=== PATIENT | male | born 1965 | race Caucasian/White ===

== ENCOUNTER → 2019-03-03 | Outpatient (CLI) | payer BC ==
--- NOTE | 2019-03-03 21:32 | CONS ---
CONSULTATION DATE OF SERVICE: 03/03/2019 53-year-old gentleman has been evaluated in the sleep center for possible obstructive sleep apnea-hypopnea syndrome HISTORY OF PRESENT ILLNESS/SLEEP WAKE EVALUATION: SLEEP SCHEDULE: Patient usual sleep schedule on working days from 4:00 pm until 12:30 am, on weekends from 6 to 7 p.m. until 4:30 am. Patient starts his job at 1:30 am and that is why his sleep schedule like I described above. FALLING ASLEEP: No problem with falling asleep, although he has TV in bedroom. He usually sleeps on the side position by himself. He knows that he snores. He wakes up from sleep up to 2 times with nocturia. No history of any unusual movements during the night. No history of hypnagogic hallucinations or sleep paralysis or cataplexy. [place] Sleepiness Scale is 4. Usually he does not take any naps. PAST MEDICAL HISTORY: Positive for hypertension. PAST SURGICAL HISTORY: Positive for surgery on the left elbow after the fracture. MEDICATIONS: Lisinopril. SOCIAL HISTORY: Positive for smoking in the past; quit more than 30 years ago. Alcohol consumption occasional. FAMILY HISTORY: Cancer. REVIEW OF SYSTEMS: Practically negative up to 2 times awakenings from sleep with nocturia. PHYSICAL EXAMINATION: During physical exam, gentleman in no distress. BP 140/79, HR 80, RR 16, height 5 feet 10-1/2 inches, weight 256 pounds. Body mass index 36.2, temperature 98.3, oxygen saturation at room air 97%. HEENT: Oropharynx moderately low position of soft palate, Mallampati 2-3. Nose: Restriction of nasal breathing bilaterally. NECK: Neck is wide 18-1/2 inches in circumference. Neck Supple, no JVD. Thyroid is not palpable. LUNGS Clear to percussion and to auscultation. Good air exchange. No wheezing or rhonchi. HEART S1, S2 regular. No murmurs, gallops, or rubs. ABDOMEN: Slightly obese. Soft and nontender. Bowel sounds are present. No organomegaly appreciated. EXTREMITIES No clubbing or cyanosis. E LEARNING DEVELOPER Awake, alert, and oriented X3. Cranial nerves 2 to 7 intact. There is no fasciculation or atrophy. noted. No focal deficits observed. IMPRESSION: 1. Snoring, awakenings from sleep with nocturia, moderately low soft palate, wide neck, obstructive sleep apnea-hypopnea syndrome. 2. Obesity BMI 36.2. 3. Hypertension. 4. Status post left elbow trauma with following surgical treatment. 5. Restriction of nasal breathing at present. 6. 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 PLANS: 1. Home sleep apnea test for evaluation of patient breathing during the sleep. 2. Following plan after reviewing the results of the sleep study. 3. Losing weight. 4. Sleep hygiene with regular time in bed for 7.5 to 8 hours. 5. No driving if feeling sleepiness. Patient is aware about civil and criminal liability for unsafe driving. Thank you very much for referring this patient for consultation. Sincerely, London Zhang MD, PhD, FAASM Diplomat of [employer] of [facility] [place] [facility]ODL / LATESHAN: [id number] /
== END | disposition home or self-care (01) ==
LOC: SLEEP 15:55
PROVIDERS: ATTEND Internal Medicine
DX: G47.33 Obstructive sleep apnea (adult) (pediatric) (principal); J98.8 Other specified respiratory disorders; I10 Essential (primary) hypertension; E66.9 Obesity, unspecified; Z68.36 Body mass index [BMI] 36.0-36.9, adult; Z87.891 Personal history of nicotine dependence; Z87.828 Personal history of other (healed) physical injury and trauma; Z98.890 Other specified postprocedural states
CPT/HCPCS: 99211

== ENCOUNTER → 2019-04-07 | Outpatient (CLI) | payer BC ==
--- NOTE | 2019-04-07 16:45 | PN ---
PROGRESS NOTE DATE OF SERVICE: 04/07/2019 This patient is a 54-year-old gentleman who has been followed in the sleep center for treatment of obstructive sleep apnea-hypopnea syndrome. The patient had a home sleep study which showed obstructive sleep apnea with apnea- hypopnea index 7.9 and oxygen desaturation to 81%. Subsequently the patient was started on treatment with AutoPAP, and today is his first visit after he received his CPAP equipment. The patient is able to use CPAP equipment without significant problems every night. No problems with the mask except a little bit of itching under the nose. Otherwise, he feels better while he is using CPAP. He sleeps better and he feels better during the day. [place] Sleepiness Scale is 4 today. I checked his CPAP unit. Range of pressure is 5-15, average pressure 9.3. The patient used it 8/9 nights with average usage 6.5 hours. Every night it was more than 4 hours. Leak is 18 L/minute. Apnea-hypopnea index 1.0, which is absolutely normal. MEDICATIONS: 1. Lisinopril. 2. Thyroid supplement. PHYSICAL EXAMINATION: GENERAL: A pleasant patient in no distress. VITAL SIGNS: BP 143/96 on the right arm, 141/94 on the left arm. HR 76, RR 18, weight 256 pounds, temperature 98.1. Oxygen saturation at room air 95%. HEENT: PERRLA, EOMI. Evaluation of oropharynx showed tongue protrudes midline. Extremely low position of soft palate. Mallampati III. NECK: Supple. No JVD. Thyroid is not palpable. LUNGS: Clear to percussion and to auscultation. Good air exchange. No wheezing or rhonchi. HEART: S1, S2 regular. No murmurs, gallops or rubs. ABDOMEN: Obese. EXTREMITIES: No clubbing or cyanosis. SHOW WORKER: Awake, alert, and oriented X3. Cranial nerves 2 to 7 intact. There is no fasciculation or atrophy. noted. No focal deficits observed. IMPRESSION: 1. Obstructive sleep apnea-hypopnea syndrome in mild range. Patient has demonstrated great compliance with treatment, benefitting from treatment. Normal respiration on CPAP. No excessive daytime sleepiness. 2. Obesity. 3. History of hypothyroidism. 4. Hypertension. 5. Status post left elbow trauma with surgical treatment. 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 PLAN: 1. Patient will continue to use CPAP equipment every night for the whole night. I will see him in several weeks to check his compliance after one month of usage of the machine. 2. Patient may continue to drive a truck. Obstructive sleep apnea is in mild range and he demonstrated good compliance with treatment. Precautions related to driving. No driving if feeling any sleepiness. 3. Losing weight. 4. Sleep hygiene with regular time in bed for at least 7-1/2 hours. Thank you very much for allowing me to participate in the management of your patient. Sincerely, London Zhang MD, PhD, FAASM Diplomat of [employer] Business Services Coordinator of [facility] [place] [facility] / LATESHAN: [id number] /
== END | disposition home or self-care (01) ==
LOC: SLEEP 14:34
PROVIDERS: ATTEND Internal Medicine
DX: G47.33 Obstructive sleep apnea (adult) (pediatric) (principal); E66.9 Obesity, unspecified; E03.9 Hypothyroidism, unspecified; I10 Essential (primary) hypertension; Z87.828 Personal history of other (healed) physical injury and trauma; Z99.89 Dependence on other enabling machines and devices; Z98.890 Other specified postprocedural states; Z79.899 Other long term (current) drug therapy

== ENCOUNTER → 2019-06-02 | Outpatient (CLI) | payer BC ==
--- NOTE | 2019-06-02 18:16 | PN ---
PROGRESS NOTE DATE OF SERVICE: 06/02/2019 This patient is a 54-year-old gentleman who has been followed in Sleep Center for treatment of obstructive sleep apnea-hypopnea syndrome. The patient received his CPAP unit and started to use it. Today is his first visit after he started to use his CPAP equipment. Patient feels better with the machine. He feels more refreshed in the morning after he wakes up. CPAP pressure in the machine is in the range from 5 to 15 with average pressure 8.6 cm of water. For the last 65 days, the patient used it 60 nights, and 48 nights for more than 4 hours with average usage 4.9 hours, which is more than 70% compliance reading. Leak is 19 L/minute, which is borderline. Apnea-hypopnea index is only 0.9, which is absolutely normal. MEDICATIONS: 1. Lisinopril. 2. Thyroid supplement. PHYSICAL EXAMINATION: GENERAL: A pleasant patient in no distress. VITAL SIGNS: BP 132/68, HR 83, RR 18, weight 264, temperature 98.2, oxygen saturation at room air 97%. HEENT: PERRLA, EOMI. Evaluation of oropharynx showed tongue protrudes midline. Extremely low position of soft palate. Mallampati III to IV. NECK: Supple. No JVD. Thyroid is not palpable. LUNGS: Clear to percussion and to auscultation. Good air exchange. No wheezing or rhonchi. HEART: S1, S2 regular. No murmurs, gallops or rubs. ABDOMEN: Obese. EXTREMITIES: No clubbing or cyanosis. DRILL PUNCH OPERATOR: Awake, alert, and oriented X3. Cranial nerves 2 to 7 intact. There is no fasciculation or atrophy. noted. No focal deficits observed. IMPRESSION: 1. Mild obstructive sleep apnea-hypopnea syndrome. Patient demonstrated good compliance with treatment, benefitting from treatment. Normal respiration on CPAP. No excessive daytime sleepiness. Normal [place] Sleepiness Scale at 2 today. 2. Obesity. 3. History of hypothyroidism. 4. Hypertension. 5. Status post left elbow trauma with surgical treatment. 6. 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 PLAN: 1. Patient will continue to use CPAP equipment every night for the whole night. 2. Losing weight. 3. Sleep hygiene with regular time in bed for at least 7-1/2 to 8 hours. 4. Precautions related to driving. No driving if feeling any sleepiness. Patient is aware of civil and criminal liability for unsafe driving. 5. I will maintain all necessary prescriptions for CPAP supplies, including mask, tube, filters. Thank you very much for allowing me to participate in the management of your patient. Sincerely, London Zhang MD, PhD, FAASM Diplomat of [employer] [facility] [place] MMODL / LATESHAN: [id number] /
== END | disposition home or self-care (01) ==

== ENCOUNTER 2020-01-25 11:40 | Emergency (ER) | payer BC ==
[2020-01-25 11:47] VITALS: RESP 18; TEMP 98
[2020-01-25] MEDS ORDERED: RABIES VACCINE (PCEC) 2.5 UNIT KIT IM ONE (11:53)
[2020-01-25] MEDS ORDERED: DIPH,PERTUS(ACELL)TETVAC-LF 0.5 ML VIAL IM ONE (11:53)
[2020-01-25] MEDS ORDERED: RABIES IMMUNE GLOB 300 UNIT/ML 1 ML VIAL IM ONE (11:53)
[2020-01-25] MEDS ORDERED: LIDOCAINE 1% INJ 10MG/ML (20 ML MDV) SQ ONE (11:54)
[2020-01-25] MEDS ORDERED: RABIES IMMUNE GLOB 300 UNIT/ML 5 ML VIAL IM ONE (12:00)
--- NOTE | 2020-01-25 12:19 | XR ---
EXAMINATION TYPE: XR forearm RT DATE OF EXAM: 01/25/2020 CLINICAL HISTORY: pain TECHNIQUE: Frontal and lateral images of the right forearm are obtained. COMPARISON: None. FINDINGS: There is no acute fracture/dislocation evident. The joint spaces appear within normal limi ts. There is soft tissue laceration noted with small radiopaque density seen which could reflect a ti ny 2 mm foreign body lateral soft tissues proximal one third. IMPRESSION: There is no acute fracture or dislocation. ICD 10 NO FRACTURE, INITIAL EVALUATION
--- NOTE | 2020-01-25 12:45 | ED ---
Animal Bite HPI - General Chief Complaint: Animal Bite Stated Complaint: dog bite rt arm Time Seen by Provider: 01/25/20 11:50 Source: patient, RN notes reviewed Mode of arrival: ambulatory Limitations: no limitations - History of Present Illness Initial Comments: 54-year-old male presents emergency from chief complaint of a dog one to his right forearm. Patient states that he is walking his dog and states all her dog came to attack his dog. He states he protected his dog putting his arm out. He states his bit by a stray dog. Patient cannot over his last tetanus. Patient denies any numbness or tingling or weakness to his hands, forearm. Patient states the bleeding is very mild he states that he's been washing the wound out at home with hydrogen peroxide and water. - Related Data Previous Rx's Medication Instructions Recorded Amoxicillin/Potassium Clav 1 tab PO Q12HR #20 tab 01/25/20 [Augmentin 875-125 Tablet] Allergies Allergy/AdvReac Type Severity Reaction Status Date / Time No Known Allergies Allergy Verified 01/25/20 11:47 Review of Systems ROS Statement: Those systems with pertinent positive or pertinent negative responses have been documented in the HPI. ROS Other: All systems not noted in ROS Statement are negative. Past Medical History Past Medical History: No Reported History Additional Past Surgical History / Comment(s): left elbow surgery Smoking Status: Never smoker Past Alcohol Use History: Occasional Past Drug Use History: None Reported General Exam Limitations: no limitations General appearance: alert, in no apparent distress Head exam: Present: atraumatic, normocephalic, normal inspection Eye exam: Present: normal appearance, PERRL, EOMI. Absent: scleral icterus, conjunctival injection, periorbital swelling Neck exam: Present: normal inspection. Absent: tenderness, meningismus, lymphadenopathy Respiratory exam: Present: normal lung sounds bilaterally. Absent: respiratory distress, wheezes, rales, rhonchi, stridor Cardiovascular Exam: Present: regular rate, normal rhythm, normal heart sounds. Absent: systolic murmur, diastolic murmur, rubs, gallop, clicks Extremities exam: Present: other (Right forearm there are multiple puncture wounds noted, 3 separate lacerations #1 - 1 cm, mild venous ooze, #2 - 3 cm laceration on the forearm, #3 V-shaped 3 cm laceration; no noted foreign body or tendon injury, patient has full strength, neurovascular intact) Course Vital Signs 01/25/20 01/25/20 11:42 12:54 Temperature 98.0 F Pulse Rate 94 88 Respiratory 18 18 Rate Blood Pressure 144/91 140/86 O2 Sat by Pulse 97 98 Oximetry Procedures - Laceration Laceration #1 Consent Obtained: verbal consent Indication: laceration Site: upper extremity (Right forearm) Size (cm): 1 Description: linear Depth: simple, single layer Anesthetic Used: lidocaine 1%, without epi Anesthesia Technique: local infiltration Amount (mls): 2 Pre-repair: wound explored, irrigated extensively, deep structures intact Type of Sutures: nylon Size of Sutures: 4-0 Number of Sutures: 1 Technique: simple, interrupted Patient Tolerated Procedure: well, no complications Laceration #2 Consent Obtained: verbal consent Indication: laceration Site: upper extremity (Right forearm) Size (cm): 3 Description: irregular Depth: simple, single layer Anesthetic Used: lidocaine 1%, without epi Anesthesia Technique: local infiltration Amount (mls): 6 Pre-repair: wound explored, irrigated extensively, deep structures intact Type of Sutures: nylon Size of Sutures: 4-0 Number of Sutures: 4 Technique: simple, interrupted Patient Tolerated Procedure: well, no complications Laceration #3 Consent Obtained: verbal consent Indication: laceration Site: upper extremity (Right forearm) Size (cm): 3 Description: irregular Depth: simple, single layer Anesthetic Used: lidocaine 1%, without epi Anesthesia Technique: local infiltration Amount (mls): 5 Pre-repair: wound explored, irrigated extensively, deep structures intact Type of Sutures: nylon Size of Sutures: 4-0 Number of Sutures: 3 Technique: simple, interrupted Patient Tolerated Procedure: well, no complications Medical Decision Making - Medical Decision Making Patient's wounds were thoroughly irrigated with Betadine and saline, there is no evidence of foreign bodies patient's full strength in no tendon involvement noted. Patient's lacerations were cleaned, sutured approximated loosely patient was placed on antibiotics patient was given rabies vaccine. Patient was given strict return parameters patient advised to have recheck in 2 days. Disposition Clinical Impression: Dog bite of right arm Disposition: HOME SELF-CARE Condition: Stable Instructions (If sedation given, give patient instructions): Animal Bite (ED) Additional Instructions: Have sutures removed in 10 days. Return for any signs of infection.Please return to the Emergency Department if symptoms worsen or any other concerns. Prescriptions: Amoxicillin/Potassium Clav [Augmentin 875-125 Tablet] 1 tab PO Q12HR #20 tab Is patient prescribed a controlled substance at d/c from ED?: No Referrals: Keisha Bueno MD [Primary Care Provider] - 1-2 days Time of Disposition: 12:45
[2020-01-25 12:55] VITALS: BP 140/86; PULSE 88
== END 2020-01-25 12:54 | disposition home or self-care (01) ==
LOC: EC 11:40
DX: S51.851A Open bite of right forearm, initial encounter (principal); Z20.3 Contact with and (suspected) exposure to rabies; Z23 Encounter for immunization; W54.0XXA Bitten by dog, initial encounter; Y93.K1 Activity, walking an animal
CPT/HCPCS: 73090; 90675; 90715; 90375 ×2; 90471; 96372 ×3; 99283; 12002; J2001